=== PATIENT | female | born 1970 | race Caucasian/White ===

== ENCOUNTER 2021-08-06 14:15 | Outpatient (CLI) | payer BC | END 2021-08-06 14:16 | disposition home or self-care (01) | LOC: RAD 14:15 | PROVIDERS: ATTEND Internal Medicine | DX: M79.671 Pain in right foot (principal) ==

== ENCOUNTER 2023-05-12 08:46 | Outpatient (CLI) | payer BC | END 2023-05-12 08:47 | disposition home or self-care (01) | LOC: MERGE 08:46 → BICRAD 08:46 → UNMERGE 08:46 → BICRAD 08:47 | PROVIDERS: ATTEND Internal Medicine | DX: M25.561 Pain in right knee (principal); M17.11 Unilateral primary osteoarthritis, right knee ==

== ENCOUNTER 2024-05-20 15:18 | Inpatient (IN) | payer BC ==
[2024-05-20 16:05] LABS: #Basophils 0.05 10x3/uL (0.0-0.2); %Basophils 0.6 % (0.0-1.0); %Eosinophils 1.5 % (0.0-10.0); %Lymphocytes 34.8 % (21.0-51.0); %Monocytes 6.8 % (0.0-10.0); %Neutrophils 56.1 % (42.0-75.0); Hematocrit 36.8 % (36.0-47.0); Hemoglobin 12.6 g/dL (12.0-16.0); Mean Corpuscular HGB CONC 34.2 g/dL (32.0-36.0); Mean Corpuscular Hemoglobin 29.8 pg (27.0-31.0); Mean Platelet Volume 10.4 fL (7.4-10.4); Platelet Count 371 10x3/uL (130-400); RBC Distribution Width 13.9 % (11.5-14.5); Red Blood Cell (RBC) Count 4.23 mill/uL (4.20-5.40)
[2024-05-20 16:18] LABS: Prothrombin Time 13.4 sec (12.0-14.7)
[2024-05-20 16:19] LABS: PTT 29.3 sec (22.9-36.1)
[2024-05-20 16:23] LABS: ALT (SGPT) 13 U/L (8-55); AST (SGOT) 15 U/L (5-34); Albumin 3.9 g/dL (3.5-5.0); Alkaline Phosphatase 59 U/L (40-110); Anion Gap 14 mmol/L (10-20); BUN (Urea Nitrogen) 10 mg/dL (9.8-20.1); Bilirubin, Total 0.3 mg/dL (0.2-1.2); Calc. Creatinine Clearance 0 mL/min (70-130); Calcium 10.2 mg/dL (7.8-10.44); Carbon Dioxide 22 mmol/L (22-29); Chloride 107 mmol/L (98-107); Estimated GFR 97; Globulin 2.8 g/dL (2.4-3.5); Glucose 87 mg/dL (70-105); Potassium 4.1 mmol/L (3.5-5.1); Protein, Total 6.7 g/dL (6.0-8.3); Sodium 139 mmol/L (136-145)
[2024-05-20 16:27] LABS: Troponin I Less than 0.010 ng/mL (< 0.028)
[2024-05-20] MEDS ORDERED: Aspirin Chewable 81 MG TAB ONE (16:43)
[2024-05-20] MEDS ORDERED: Acetaminophen 650 MG Suppository PR PRN (17:21)
[2024-05-20 22:09] VITALS: BMI 28.8
[2024-05-20] MEDS: Atorvastatin Calcium 40 MG TAB PO SCH (22:58)
[2024-05-21 04:28] LABS: #Basophils 0.07 10x3/uL (0.0-0.2); %Basophils 0.8 % (0.0-1.0); %Eosinophils 2.4 % (0.0-10.0); %Lymphocytes 45.4 % (21.0-51.0); %Monocytes 9.7 % (0.0-10.0); %Neutrophils 41.5 % (42.0-75.0); Hematocrit 38.4 % (36.0-47.0); Hemoglobin 12.6 g/dL (12.0-16.0); Mean Corpuscular HGB CONC 32.8 g/dL (32.0-36.0); Mean Corpuscular Hemoglobin 28.8 pg (27.0-31.0); Mean Corpuscular Volume 87.9 fL (78.0-98.0); Mean Platelet Volume 10.7 fL (7.4-10.4); Platelet Count 356 10x3/uL (130-400); Red Blood Cell (RBC) Count 4.37 mill/uL (4.20-5.40)
[2024-05-21 04:46] LABS: Anion Gap 13 mmol/L (10-20); BUN (Urea Nitrogen) 9 mg/dL (9.8-20.1); Calc. Creatinine Clearance 119 mL/min (70-130); Calcium 9.6 mg/dL (7.8-10.44); Carbon Dioxide 22 mmol/L (22-29); Cardiac Risk 4.6 (Less than 4.5); Chloride 108 mmol/L (98-107); Cholesterol 192 mg/dl (< 200 Desired); Estimated GFR 104; Glucose 86 mg/dL (70-105); HDL Cholesterol 42 mg/dL (>60 Neg Risk); LDL Cholesterol, Calculated 120 mg/dL; Potassium 3.5 mmol/L (3.5-5.1); Sodium 139 mmol/L (136-145); Triglycerides 151 mg/dL (Less than 150)
[2024-05-21 04:50] LABS: Hemoglobin A1c 5.3 % (4.0-6.0)
[2024-05-21] MEDS: Aspirin 81 mg Enteric Coated Tablet PO SCH (09:05)
[2024-05-21] MEDS: Acetaminophen 325 MG TAB PO PRN (09:15)
[2024-05-22] MEDS ORDERED: Iopamidol 370 76% 100 ML VIAL ONE (11:15)
[2024-05-22 15:15] VITALS: BP 109/72; TEMP 97.9
== END 2024-05-22 16:30 | disposition home or self-care (01) | DRG 65 ==
LOC: ERS 15:18 → ERHOLD 17:27 → 2SE 21:39
PROVIDERS: ADMIT Internal Medicine; ATTEND Internal Medicine
DX: I63.9 Cerebral infarction, unspecified (principal); Q21.12 Patent foramen ovale; I10 Essential (primary) hypertension; G43.909 Migraine, unspecified, not intractable, without status migrainosus; Z79.899 Other long term (current) drug therapy; Z88.8 Allergy status to other drugs, medicaments and biological substances; E78.5 Hyperlipidemia, unspecified; E11.9 Type 2 diabetes mellitus without complications; Z98.890 Other specified postprocedural states; Z82.49 Family history of ischemic heart disease and other diseases of the circulatory system; Z96.651 Presence of right artificial knee joint; F32.A Depression, unspecified; H53.47 Heteronymous bilateral field defects; Z79.82 Long term (current) use of aspirin
CPT/HCPCS: 36415; 70496; 70498; 80048; 80053; 80061; 83036; 84443; 84484; 85025; 85610; 85730; 93306; 93880; 99284; Q9967